=== PATIENT | female | born 1935 | race Caucasian/White ===

== ENCOUNTER 2021-06-04 18:14 | Inpatient (IN) ==
[2021-06-04] MEDS ORDERED: GLUCAGON 1 MG VIAL IM PRN (23:14)
[2021-06-04] MEDS ORDERED: DEXTROSE 50% 25 GM/50 ML VIAL IV PRN (23:14)
[2021-06-04] MEDS ORDERED: ACETAMINOPHEN 325 MG TABLET PO PRN (23:18)
[2021-06-04] MEDS ORDERED: ONDANSETRON 4 MG/2 ML VIAL IV PRN (23:25)
[2021-06-05] MEDS ORDERED: MELATONIN 3 MG TABLET PO PRN (00:15)
[2021-06-05] MEDS ORDERED: ENOXAPARIN 60 MG/0.6 ML SYRINGE SUBCUT SCH (00:30)
[2021-06-05 06:23] LABS: Basophils % 0.4 % (0.0-0.8); Eosinophils % 0.2 % (0.00-10.9); Hematocrit 36.9 VOL% (35.7-47.0); Hemoglobin 11.6 GM/DL (12.0-16.0); Immature Granulocytes % 0.4 %; Immature Granulocytes Absolute 0.02 #; Lymphocytes # 1.3 10*3/uL (1.4-4.0); Lymphocytes % 25.6 % (21.3-54.2); Mean Corpuscular HGB Conc 31.4 GM/DL (32-36); Mean Corpuscular Volume 90.9 FL (87-102); Mean Platelet Volume 11.7 FL (9.6-12.0); Monocytes % 13.6 % (1.7-12.7); Neutrophils % 59.8 % (38.7-73.9); Platelet Count 96 T/CUMM (130-400); Red Blood Count 4.06 MC/CUMM (3.8-5.5); Red Cell Distribution Width 17.2 % (9.3-17.3); White Blood Count 5.1 T/CUMM (4-12)
[2021-06-05 06:44] LABS: Anisocytosis 1+; Burr Cells Few; Macrocytosis Slight; Platelet Estimate Decreased
[2021-06-05 06:46] LABS: Calcium 8.3 MG/DL (8.5-10.1); Potassium 3.4 MMOL/L (3.5-5.1)
[2021-06-05 06:48] LABS: Risk Ratio 2.54; VLDL Cholesterol 15.8 MG/DL
[2021-06-05 06:51] LABS: PT Patient Result 11.6 SECS (10.5-12.0)
[2021-06-05 06:57] LABS: Ferritin 170.5 ng/ml (8-252)
[2021-06-05] MEDS: ZINC GLUCONATE 50 MG TABLET PO SCH (08:32)
[2021-06-05] MEDS: FAMOTIDINE 20 MG TABLET PO SCH ×2 (08:32→20:18)
[2021-06-05] MEDS: DOCUSATE SODIUM 100 MG CAPSULE PO SCH ×2 (08:32→20:18)
[2021-06-05] MEDS: CHOLECALCIFEROL 1,000 UNIT TABLET PO SCH (08:32)
[2021-06-05] MEDS: ASCORBIC ACID 500 MG TABLET PO SCH ×2 (08:33→20:18)
[2021-06-05] MEDS: CETIRIZINE 10 MG TABLET PO SCH (08:33)
[2021-06-05] MEDS: ENOXAPARIN 60 MG/0.6 ML SYRINGE SUBCUT SCH ×2 (08:33→20:18)
[2021-06-05] MEDS ORDERED: PANTOPRAZOLE 40 MG TABLET PO SCH (09:00)
[2021-06-05] MEDS ORDERED: POTASSIUM CHLORIDE 20 MEQ TABLET PO ONE (11:01)
[2021-06-05] MEDS: ASPIRIN EC 81 MG TABLET PO SCH (11:34)
[2021-06-06 06:47] LABS: Basophils % 0.2 % (0.0-0.8); Eosinophils % 0.4 % (0.00-10.9); Hematocrit 36.4 VOL% (35.7-47.0); Hemoglobin 11.2 GM/DL (12.0-16.0); Immature Granulocytes % 0.2 %; Immature Granulocytes Absolute 0.01 #; Lymphocytes # 2.3 10*3/uL (1.4-4.0); Lymphocytes % 46.3 % (21.3-54.2); Mean Corpuscular HGB Conc 30.8 GM/DL (32-36); Mean Corpuscular Volume 89.9 FL (87-102); Mean Platelet Volume 11.1 FL (9.6-12.0); Monocytes % 9.6 % (1.7-12.7); Neutrophils % 43.3 % (38.7-73.9); Platelet Count 102 T/CUMM (130-400); Red Blood Count 4.05 MC/CUMM (3.8-5.5); Red Cell Distribution Width 17.2 % (9.3-17.3)
[2021-06-06 07:09] LABS: Osmolality,Calculated 282.3 MOS/KG (273-304); Potassium 3.3 MMOL/L (3.5-5.1)
[2021-06-06 10:35] LABS: Hypochromasia 1+; Platelet Estimate Adequate
[2021-06-06] MEDS: ASCORBIC ACID 500 MG TABLET PO SCH ×2 (10:53→21:30)
[2021-06-06] MEDS: ASPIRIN EC 81 MG TABLET PO SCH (10:53)
[2021-06-06] MEDS: FAMOTIDINE 20 MG TABLET PO SCH ×2 (10:54→21:30)
[2021-06-06] MEDS: DOCUSATE SODIUM 100 MG CAPSULE PO SCH ×2 (10:54→21:30)
[2021-06-06] MEDS: CETIRIZINE 10 MG TABLET PO SCH (10:54)
[2021-06-06] MEDS: ZINC GLUCONATE 50 MG TABLET PO SCH (10:54)
[2021-06-06] MEDS: ENOXAPARIN 60 MG/0.6 ML SYRINGE SUBCUT SCH (10:54)
[2021-06-06] MEDS: CHOLECALCIFEROL 1,000 UNIT TABLET PO SCH (10:54)
[2021-06-06] MEDS ORDERED: POTASSIUM CHLORIDE 20 MEQ TABLET PO ONE (15:17)
[2021-06-06] MEDS: DEXAMETHASONE 4 MG/1 ML VIAL IV SCH (16:47)
[2021-06-06] MEDS: IVERMECTIN 3 MG TABLET PO SCH (17:43)
[2021-06-07 05:49] LABS: Hematocrit 36.5 VOL% (35.7-47.0); Hemoglobin 11.2 GM/DL (12.0-16.0); Immature Granulocytes % 0.3 %; Immature Granulocytes Absolute 0.01 #; Lymphocytes # 0.8 10*3/uL (1.4-4.0); Mean Corpuscular HGB Conc 30.7 GM/DL (32-36); Mean Corpuscular Volume 92.6 FL (87-102); Mean Platelet Volume 12.4 FL (9.6-12.0); Monocytes % 3.8 % (1.7-12.7); Neutrophils % 68.9 % (38.7-73.9); Platelet Count 87 T/CUMM (130-400); Red Blood Count 3.94 MC/CUMM (3.8-5.5); Red Cell Distribution Width 17.4 % (9.3-17.3); White Blood Count 2.9 T/CUMM (4-12)
[2021-06-07 06:17] LABS: Calcium 8.1 MG/DL (8.5-10.1); Ferritin 226.3 ng/ml (8-252); Osmolality,Calculated 284.5 MOS/KG (273-304); Potassium 4.3 MMOL/L (3.5-5.1)
[2021-06-07] MEDS: CETIRIZINE 10 MG TABLET PO SCH (09:55)
[2021-06-07] MEDS: DOCUSATE SODIUM 100 MG CAPSULE PO SCH ×2 (09:55→19:45)
[2021-06-07] MEDS: ASCORBIC ACID 500 MG TABLET PO SCH ×2 (09:55→19:45)
[2021-06-07] MEDS: ASPIRIN EC 81 MG TABLET PO SCH (09:55)
[2021-06-07] MEDS: FAMOTIDINE 20 MG TABLET PO SCH ×2 (09:55→19:45)
[2021-06-07] MEDS: AZITHROMYCIN 250 MG TABLET PO SCH (09:55)
[2021-06-07] MEDS: CHOLECALCIFEROL 1,000 UNIT TABLET PO SCH (09:55)
[2021-06-07] MEDS: DEXAMETHASONE 4 MG/1 ML VIAL IV SCH (09:56)
[2021-06-07] MEDS: IVERMECTIN 3 MG TABLET PO SCH (09:56)
[2021-06-07] MEDS: ENOXAPARIN 40 MG/0.4 ML SYRINGE SUBCUT SCH (09:56)
[2021-06-07] MEDS: ZINC GLUCONATE 50 MG TABLET PO SCH (09:56)
[2021-06-07 10:33] LABS: Hypochromasia 1+; Platelet Estimate Decreased
[2021-06-08 06:34] LABS: Basophils % 0.2 % (0.0-0.8); Eosinophils % 0.4 % (0.00-10.9); Hematocrit 35.1 VOL% (35.7-47.0); Hemoglobin 10.9 GM/DL (12.0-16.0); Immature Granulocytes % 0.2 %; Immature Granulocytes Absolute 0.01 #; Lymphocytes # 2.8 10*3/uL (1.4-4.0); Lymphocytes % 62.2 % (21.3-54.2); Mean Corpuscular HGB Conc 31.1 GM/DL (32-36); Mean Corpuscular Volume 89.8 FL (87-102); Mean Platelet Volume 11.9 FL (9.6-12.0); Platelet Count 101 T/CUMM (130-400); Red Blood Count 3.91 MC/CUMM (3.8-5.5); Red Cell Distribution Width 17.4 % (9.3-17.3); White Blood Count 4.6 T/CUMM (4-12)
[2021-06-08 06:50] LABS: Blood Urea Nitrogen 27 MG/DL (7-18); Calcium 8.4 MG/DL (8.5-10.1); Carbon Dioxide 22 MMOL/L (21-32); Estimated Glom Filtration Rate 59 ML/MIN; Ferritin 230.4 ng/ml (8-252); Glucose 78 MG/DL (74-106); Osmolality,Calculated 282.4 MOS/KG (273-304); Potassium 4.1 MMOL/L (3.5-5.1); Sodium 140 MMOL/L (136-145)
[2021-06-08 07:10] LABS: Lymphocytes 61 % (20-55); Platelet Estimate Adequate; Segmented Neutrophils 33 % (50-85); Total Cells Counted 100
[2021-06-08] MEDS: DOCUSATE SODIUM 100 MG CAPSULE PO SCH (09:14)
[2021-06-08] MEDS: ENOXAPARIN 40 MG/0.4 ML SYRINGE SUBCUT SCH (09:14)
[2021-06-08] MEDS: ASPIRIN EC 81 MG TABLET PO SCH (09:14)
[2021-06-08] MEDS: DEXAMETHASONE 4 MG/1 ML VIAL IV SCH (09:14)
[2021-06-08] MEDS: FAMOTIDINE 20 MG TABLET PO SCH (09:14)
[2021-06-08] MEDS: ASCORBIC ACID 500 MG TABLET PO SCH (09:15)
[2021-06-08] MEDS: CETIRIZINE 10 MG TABLET PO SCH (09:15)
[2021-06-08] MEDS: AZITHROMYCIN 250 MG TABLET PO SCH (09:15)
[2021-06-08] MEDS: IVERMECTIN 3 MG TABLET PO SCH (09:15)
[2021-06-08] MEDS: ZINC GLUCONATE 50 MG TABLET PO SCH (09:15)
[2021-06-08] MEDS: CHOLECALCIFEROL 1,000 UNIT TABLET PO SCH (09:15)
[2021-06-08 12:28] VITALS: BP 137/54
== END 2021-06-08 17:09 | disposition home or self-care (01) | DRG 177 ==
LOC: N.ED 18:14 → N.EDINP 18:14 → N.2E 20:07 → OBSVTOIN 21:32 → N.2E 22:13
PROVIDERS: ADMIT Internal Medicine; ATTEND Internal Medicine